=== PATIENT | male | born 1970 | race Two or more races ===

== ENCOUNTER 2024-05-14 11:00 | Emergency (ER) | payer OTHER ==
[~2024-05-14] VITALS: Ht 170.2 cm; Wt 68.0 kg
[2024-05-14] MEDS ORDERED: cloNIDine HCL 0.2 MG TABLET PO ONE (12:00)
== END 2024-05-14 13:47 | disposition home or self-care (01) ==
LOC: ER 11:02
DX: I10 Essential (primary) hypertension (principal); M77.32 Calcaneal spur, left foot